=== PATIENT | female | born 1955 | race Caucasian/White ===

== ENCOUNTER 2024-08-07 22:45 | Emergency (ER) | payer MEDICARE, OTHER ==
[~2024-08-07] VITALS: Ht 160 cm; Wt 86.2 kg
[2024-08-08] MEDS ORDERED: ACETAMINOPHEN 325 MG TAB PO ONE (01:55)
[2024-08-08] MEDS ORDERED: Bacitracin Zinc 14 GM TUBE T ONE (02:00)
== END 2024-08-08 02:11 | disposition home or self-care (01) ==
LOC: ED 22:45
DX: S01.21XA Laceration without foreign body of nose, initial encounter (principal); M79.641 Pain in right hand; W18.09XA Striking against other object with subsequent fall, initial encounter; Y93.89 Activity, other specified; Y92.89 Other specified places as the place of occurrence of the external cause; Y99.8 Other external cause status